=== PATIENT | female | born 1960 | race Caucasian/White ===

== ENCOUNTER 2019-09-23 16:30 | Emergency (ER) | payer SELFPAY ==
[~2019-09-23] VITALS: Ht 175.3 cm; Wt 81.8 kg
[2019-09-23 16:39] VITALS: Ht 175.3 cm; Wt 81.8 kg
[2019-09-23] MEDS ORDERED: VITAMIN D10000 UNI1 (16:41)
[2019-09-23] MEDS ORDERED: LISINOPRIL2.5 MG (16:41)
[2019-09-23] MEDS ORDERED: FLUTICASONE PRO16 GM NASAL (19:19)
[2019-09-23] MEDS ORDERED: TESSALON PERLE100 MG PO (19:19)
[2019-09-23] MEDS ORDERED: DURAFLU 325-201 EACH PO (19:19)
[2019-09-23 19:30] VITALS: BP 111/64
== END 2019-09-23 19:30 | disposition home or self-care (01) ==
LOC: D.ER 16:30
DX: B34.9 Viral infection, unspecified (principal); J11.1 Influenza due to unidentified influenza virus with other respiratory manifestations; I10 Essential (primary) hypertension; Z72.0 Tobacco use